=== PATIENT | female | born 1980 | race Caucasian/White ===

== ENCOUNTER 2018-02-02 14:02 | Outpatient (CLI) | payer BC ==
[~2018-02-02 14:02] MED LIST: ISOVUE-370 76%-LOCM 1 ML ONE
== END 2018-02-02 14:03 | disposition home or self-care (01) ==
LOC: BICCT 14:02
PROVIDERS: ATTEND Family Medicine
DX: R10.12 Left upper quadrant pain (principal); Z98.890 Other specified postprocedural states
CPT/HCPCS: 71260; 74160

== ENCOUNTER 2019-02-21 08:13 | Outpatient (CLI) | payer BC ==
--- NOTE | 2019-02-21 08:35 | MMO ---
Bilateral MAMMO Bilat Screen [facility]. CLINICAL HISTORY: Patient is 38 years old and is seen for screening. The patient has no family history of breast cancer. The patient has no personal history of cancer. VIEWS: The views performed were: bilateral craniocaudal with tomosynthesis and bilateral mediolateral oblique with tomosynthesis. MAMMOGRAM FINDINGS: There are scattered fibroglandular densities. There are no suspicious masses, suspicious calcifications, or new areas of architectural distortion. IMPRESSION: THERE IS NO MAMMOGRAPHIC EVIDENCE OF MALIGNANCY. A ROUTINE FOLLOW-UP MAMMOGRAM IN 1 YEAR IS RECOMMENDED. THE RESULTS OF THIS EXAM WERE SENT TO THE PATIENT. ACR BI-RADS Category 1 - Negative MAMMOGRAPHY NOTE: 1. A negative mammogram report should not delay a biopsy if a dominant of clinically suspicious mass is present. 2. Approximately 10% to 15% of breast cancers are not detected by mammography. 3. Adenosis and dense breasts may obscure an underlying neoplasm. Reported by: TIM MANNING MD Electonically Signed: [id number]
== END 2019-02-21 08:14 | disposition home or self-care (01) ==
LOC: BICMAMMO 08:13
PROVIDERS: ATTEND Family Medicine
DX: Z12.31 Encounter for screening mammogram for malignant neoplasm of breast (principal)
CPT/HCPCS: 77063; 77067

== ENCOUNTER 2020-05-25 15:51 | Outpatient (CLI) | payer BC ==
--- NOTE | 2020-05-25 16:28 | MMO ---
Bilateral MAMMO Bilat Screen [facility]. CLINICAL HISTORY: Patient is 39 years old and is seen for screening. The patient has the following family history of breast cancer: maternal grandmother. The patient has no personal history of cancer. VIEWS: The views performed were: bilateral craniocaudal with tomosynthesis and bilateral mediolateral oblique with tomosynthesis. FILMS COMPARED: The present examination has been compared to a prior imaging study performed at [facility] on 02/21/2019. This study has been interpreted with the assistance of computer-aided detection. MAMMOGRAM FINDINGS: There are scattered fibroglandular densities. There are no suspicious masses, suspicious calcifications, or new areas of architectural distortion. IMPRESSION: THERE IS NO MAMMOGRAPHIC EVIDENCE OF MALIGNANCY. A ROUTINE FOLLOW-UP MAMMOGRAM IN 1 YEAR IS RECOMMENDED. THE RESULTS OF THIS EXAM WERE SENT TO THE PATIENT. ACR BI-RADS Category 1 - Negative MAMMOGRAPHY NOTE: 1. A negative mammogram report should not delay a biopsy if a dominant of clinically suspicious mass is present. 2. Approximately 10% to 15% of breast cancers are not detected by mammography. 3. Adenosis and dense breasts may obscure an underlying neoplasm. Reported by: YADIRA JIMÉNEZ MD Electonically Signed: [id number]
== END 2020-05-25 15:52 | disposition home or self-care (01) ==
LOC: BICMAMMO 15:51
PROVIDERS: ATTEND Family Medicine
DX: Z12.31 Encounter for screening mammogram for malignant neoplasm of breast (principal); Z80.3 Family history of malignant neoplasm of breast
CPT/HCPCS: 77063; 77067

== ENCOUNTER 2021-01-18 12:17 | Outpatient (CLI) | payer BC | END 2021-01-18 12:18 | disposition home or self-care (01) | LOC: BICMRI 12:17 | PROVIDERS: ATTEND Nurse Practitioner Family | DX: M51.16 Intervertebral disc disorders with radiculopathy, lumbar region (principal); M48.061 Spinal stenosis, lumbar region without neurogenic claudication | CPT/HCPCS: 72148 ==

== ENCOUNTER 2021-11-15 07:56 | Outpatient (CLI) | payer BC | END 2021-11-15 07:57 | disposition home or self-care (01) | LOC: BICMAMMO 07:56 | PROVIDERS: ATTEND Family Medicine | DX: Z12.31 Encounter for screening mammogram for malignant neoplasm of breast (principal) | CPT/HCPCS: 77063; 77067 ==

== ENCOUNTER 2021-12-15 08:38 | Outpatient (CLI) | payer BC | END 2021-12-15 08:39 | disposition home or self-care (01) | LOC: MRI 08:38 | PROVIDERS: ATTEND Physician Assistant Medical | DX: R74.8 Abnormal levels of other serum enzymes (principal); N28.1 Cyst of kidney, acquired; Z90.49 Acquired absence of other specified parts of digestive tract | CPT/HCPCS: 74183 ==

== ENCOUNTER 2022-06-27 07:58 | Day surgery (SDC) | payer BC ==
[2022-06-24 14:16] VITALS: BMI 28.3
[2022-06-27 08:00] LABS: #Basophils 0.1 thou/uL (0.0-0.2); #Eosinphils 0.1 thou/uL (0.0-0.7); #Monocytes 0.7 thou/uL (0.11-0.59); #Neutrophils 3.9 thou/uL (1.40-6.50); %Basophils 0.9 % (0.0-1.0); %Eosinophils 1.9 % (0.0-10.0); %Lymphocytes 38.3 % (21.0-51.0); %Monocytes 8.5 % (0.0-10.0); %Neutrophils 50.5 % (42.0-75.0); Hemoglobin 13.6 g/dL (12.0-16.0); Mean Corpuscular HGB CONC 31.6 g/dL (32.0-36.0); Mean Corpuscular Hemoglobin 29.1 pg (27.0-31.0); Mean Corpuscular Volume 92.1 fl (78.0-98.0); Mean Platelet Volume 6.8 fL (7.4-10.4); Platelet Count 379 10x3/uL (130-400); RBC Distribution Width 11.3 % (11.5-14.5); Red Blood Cell (RBC) Count 4.66 mill/uL (4.20-5.40); White Blood Cell (WBC) Count 7.8 10x3/uL (4.8-10.8)
[2022-06-27 08:17] LABS: PTT 27.6 sec (22.9-36.1)
[2022-06-27] MEDS ORDERED: Midazolam HCl 2 mg/2 ml Vial ONE (08:40)
[2022-06-27] MEDS ORDERED: FENTANYL 50 MCG/ML 1 ML VIAL ONE (08:41)
[2022-06-27] MEDS ORDERED: Lidocaine 2% PF 5 ML VIAL ONE ×2 (08:41→09:51)
[2022-06-27] MEDS ORDERED: Sodium Bicarbonate 2.5 MEQ/5 ML VIAL ONE (08:41)
[2022-06-27 08:48] LABS: INR-International Normal Ratio 0.9; Prothrombin Time 12.9 sec (12.0-14.7)
[2022-06-27] MEDS ORDERED: HYDROcodone/Acetaminophen 5/325 mg Tablet ONE ×3 (10:03→12:09)
[2022-06-27] MEDS ORDERED: Ondansetron PF 4 MG/2 ML Vial ONE (10:21)
[2022-06-27] MEDS ORDERED: Dicyclomine 20 MG/2 ML VIAL IM SCH (10:45)
== END 2022-06-27 13:00 | disposition home or self-care (01) ==
LOC: ULT 07:58
PROVIDERS: ATTEND Physician Assistant Medical
PROC: 0FB23ZX Excision of Left Lobe Liver, Percutaneous Approach, Diagnostic (ICD-10-PCS; principal; 2022-06-27)
DX: R74.8 Abnormal levels of other serum enzymes (principal); K25.9 Gastric ulcer, unspecified as acute or chronic, without hemorrhage or perforation; R10.30 Lower abdominal pain, unspecified; E78.00 Pure hypercholesterolemia, unspecified; M06.9 Rheumatoid arthritis, unspecified; Z79.899 Other long term (current) drug therapy; Z98.84 Bariatric surgery status
CPT/HCPCS: 47000; 74176; 76942; 85025; 85730; J2001; J2250; J2405; J3010

== ENCOUNTER 2022-06-27 13:18 | Inpatient (IN) | payer BC ==
[2022-06-27 14:14] LABS: #Lymphocytes 1.3 thou/uL (1.20-3.40); #Neutrophils 16.3 thou/uL (1.40-6.50); %Basophils 0.2 % (0.0-1.0); %Eosinophils 0.1 % (0.0-10.0); %Monocytes 5.2 % (0.0-10.0); %Neutrophils 87.4 % (42.0-75.0); Hemoglobin 13.7 g/dL (12.0-16.0); Mean Corpuscular HGB CONC 31.2 g/dL (32.0-36.0); Mean Corpuscular Hemoglobin 28.1 pg (27.0-31.0); Mean Platelet Volume 7.3 fL (7.4-10.4); Platelet Count 391 10x3/uL (130-400); RBC Distribution Width 11.2 % (11.5-14.5); Red Blood Cell (RBC) Count 4.87 mill/uL (4.20-5.40); White Blood Cell (WBC) Count 18.7 10x3/uL (4.8-10.8)
[2022-06-27] MEDS ORDERED: Iopamidol-370 76% 500 ML 1 ML ONE (14:20)
[2022-06-27 14:40] LABS: ALT (SGPT) 13 U/L (8-55); AST (SGOT) 23 U/L (5-34); Alkaline Phosphatase 149 U/L (40-110); Anion Gap 18 mmol/L (10-20); BUN (Urea Nitrogen) 13 mg/dL (7.0-18.7); Bilirubin, Total 0.5 mg/dL (0.2-1.2); Calc. Creatinine Clearance 0 mL/min (70-130); Calcium 9.1 mg/dL (7.8-10.44); Carbon Dioxide 19 mmol/L (22-29); Chloride 105 mmol/L (98-107); Estimated GFR 82; Glucose 176 mg/dL (70-105); Potassium 3.4 mmol/L (3.5-5.1); Sodium 139 mmol/L (136-145)
[2022-06-27] MEDS ORDERED: Morphine 4 MG/ML VIAL ONE (14:52)
[2022-06-27] MEDS ORDERED: Morphine 4 MG/ML VIAL SLOW IVP PRN (16:50)
[2022-06-27] MEDS ORDERED: Ondansetron ODT 4 MG TAB SL PRN (17:00)
[2022-06-27] MEDS ORDERED: Ondansetron PF 4 MG/2 ML Vial IVP PRN (17:00)
[2022-06-27 17:42] VITALS: BMI 27.4
[2022-06-27] MEDS ORDERED: TETANUS, DIPHTHERIA TOX,ADULT (TDVAX) 0.5 ML VIAL IM ONE (18:46)
[2022-06-27] MEDS ORDERED: Morphine 2 MG/ML VIAL SLOW IVP PRN (18:46)
[2022-06-27] MEDS ORDERED: hydrALAZINE 20 MG/ML VIAL SLOW IVP PRN (18:46)
[2022-06-27] MEDS ORDERED: Zolpidem Tartrate 5 MG TAB PO PRN (18:58)
[2022-06-27] MEDS ORDERED: Ketorolac Tromethamine 30 MG/ML VIAL IVP SCH (19:00)
[2022-06-27 19:07] LABS: Hemoglobin 14.5 g/dL (12.0-16.0)
[2022-06-27] MEDS: D5 1/2 NS w/20 mEq KCL 1,000 ML IV SCH (20:27)
[2022-06-27] MEDS: Acetaminophen 500 MG TAB PO SCH ×2 (20:27→23:41)
[2022-06-27] MEDS: Escitalopram Oxalate 10 mg Tablet PO SCH (20:28)
[2022-06-27] MEDS: Famotidine 20 MG TAB PO SCH (20:29)
[2022-06-27] MEDS: Morphine 4 MG/ML VIAL SLOW IVP PRN ×2 (20:29→23:42)
[2022-06-27] MEDS: Ketorolac Tromethamine 30 MG/ML VIAL IVP SCH (23:41)
[2022-06-28] MEDS: Ketorolac Tromethamine 30 MG/ML VIAL IVP SCH ×4 (04:56→22:25)
[2022-06-28] MEDS: ALPRAZolam 0.5 MG TAB PO PRN (04:57)
[2022-06-28] MEDS: D5 1/2 NS w/20 mEq KCL 1,000 ML IV SCH ×2 (04:58→11:04)
[2022-06-28] MEDS: Morphine 4 MG/ML VIAL SLOW IVP PRN ×5 (05:46→22:23)
[2022-06-28] MEDS: Acetaminophen 500 MG TAB PO SCH ×4 (05:47→23:15)
[2022-06-28 06:21] LABS: #Lymphocytes 1.6 thou/uL (1.20-3.40); #Monocytes 1.5 thou/uL (0.11-0.59); #Neutrophils 15.4 thou/uL (1.40-6.50); %Basophils 0.1 % (0.0-1.0); %Eosinophils 0.1 % (0.0-10.0); %Lymphocytes 8.6 % (21.0-51.0); %Neutrophils 83.1 % (42.0-75.0); Hemoglobin 13.8 g/dL (12.0-16.0); Mean Corpuscular HGB CONC 31.6 g/dL (32.0-36.0); Mean Corpuscular Hemoglobin 29.4 pg (27.0-31.0); Mean Platelet Volume 7.5 fL (7.4-10.4); Platelet Count 344 10x3/uL (130-400); RBC Distribution Width 11.4 % (11.5-14.5); White Blood Cell (WBC) Count 18.6 10x3/uL (4.8-10.8)
[2022-06-28 06:41] LABS: Anion Gap 11 mmol/L (10-20); BUN (Urea Nitrogen) 9 mg/dL (7.0-18.7); Calc. Creatinine Clearance 92 mL/min (70-130); Calcium 9.2 mg/dL (7.8-10.44); Carbon Dioxide 26 mmol/L (22-29); Chloride 105 mmol/L (98-107); Estimated GFR 87; Glucose 137 mg/dL (70-105); Potassium 3.9 mmol/L (3.5-5.1); Sodium 138 mmol/L (136-145)
[2022-06-28] MEDS: Hydroxychloroquine Sulfate 200 MG TAB PO SCH (08:14)
[2022-06-28] MEDS: Famotidine 20 MG TAB PO SCH ×2 (08:14→21:09)
[2022-06-28] MEDS ORDERED: Milk Of Magnesia 30 ML UDCUP PO PRN (14:21)
[2022-06-28] MEDS ORDERED: Simethicone Chewable 80 MG TAB PO SCH (14:30)
[2022-06-28] MEDS ORDERED: Milk Of Magnesia 30 ML UDCUP PO SCH (14:30)
[2022-06-28 16:32] LABS: Hemoglobin 13.5 g/dL (12.0-16.0); Mean Corpuscular Hemoglobin 28.8 pg (27.0-31.0); Mean Corpuscular Volume 92.9 fl (78.0-98.0); Mean Platelet Volume 7.3 fL (7.4-10.4); Platelet Count 347 10x3/uL (130-400); RBC Distribution Width 11.7 % (11.5-14.5); Red Blood Cell (RBC) Count 4.69 mill/uL (4.20-5.40); White Blood Cell (WBC) Count 22.9 10x3/uL (4.8-10.8)
[2022-06-28] MEDS ORDERED: traMADol HCl 50 MG TAB PO PRN (16:32)
[2022-06-28 16:45] LABS: Band 13 % (5-11); Lymphocytes 2 % (21-51); MDiff Complete? YES; Monocytes 11 % (0-10); Neutrophil 74 % (42-75); Platelet Morphology Comment Appears Adequate; RBC Morphology Normal; Vacuoles SLIGHT
[2022-06-28] MEDS ORDERED: Ondansetron ODT 4 MG TAB PO PRN (17:14)
[2022-06-28] MEDS ORDERED: Ondansetron ODT 8 MG TAB PO PRN (17:14)
[2022-06-28] MEDS: Ondansetron PF 4 MG/2 ML Vial IVP PRN (18:47)
[2022-06-28] MEDS: HYDROcodone/Acetaminophen 5/325 mg Tablet PO PRN (21:09)
[2022-06-28] MEDS: Escitalopram Oxalate 10 mg Tablet PO SCH (21:09)
[2022-06-28] MEDS ORDERED: Promethazine HCl 25 MG/ML VIAL IM PRN (21:49)
[2022-06-28] MEDS: Promethazine 25 MG TAB PO PRN (22:23)
[2022-06-28] MEDS: Simethicone Chewable 80 MG TAB PO PRN (22:26)
[2022-06-29] MEDS: Ketorolac Tromethamine 30 MG/ML VIAL IVP SCH ×4 (05:49→23:37)
[2022-06-29] MEDS: Acetaminophen 500 MG TAB PO SCH ×4 (05:49→23:36)
[2022-06-29 06:35] LABS: #Lymphocytes 1.4 thou/uL (1.20-3.40); #Monocytes 1.4 thou/uL (0.11-0.59); #Neutrophils 16.1 thou/uL (1.40-6.50); %Basophils 0.3 % (0.0-1.0); %Eosinophils 0.2 % (0.0-10.0); %Lymphocytes 7.2 % (21.0-51.0); %Monocytes 7.6 % (0.0-10.0); %Neutrophils 84.8 % (42.0-75.0); Hemoglobin 13.1 g/dL (12.0-16.0); Mean Corpuscular Volume 93.6 fl (78.0-98.0); Mean Platelet Volume 7.6 fL (7.4-10.4); Platelet Count 344 10x3/uL (130-400); RBC Distribution Width 11.8 % (11.5-14.5); Red Blood Cell (RBC) Count 4.66 mill/uL (4.20-5.40); White Blood Cell (WBC) Count 18.9 10x3/uL (4.8-10.8)
[2022-06-29] MEDS: Famotidine 20 MG TAB PO SCH ×2 (08:59→20:51)
[2022-06-29] MEDS: Hydroxychloroquine Sulfate 200 MG TAB PO SCH (08:59)
[2022-06-29] MEDS: Polyethylene Glycol 3350 17 GM Packet PO SCH (08:59)
[2022-06-29] MEDS: Promethazine 25 MG TAB PO PRN ×2 (09:58→20:51)
[2022-06-29] MEDS: HYDROcodone/Acetaminophen 5/325 mg Tablet PO PRN ×2 (10:04→20:51)
[2022-06-29] MEDS: Simethicone Chewable 80 MG TAB PO PRN ×2 (11:01→20:51)
[2022-06-29] MEDS ORDERED: Iopamidol-370 76% 500 ML 1 ML ONE (11:18)
[2022-06-29] MEDS: Ondansetron PF 4 MG/2 ML Vial IVP PRN (17:19)
[2022-06-29] MEDS: Morphine 4 MG/ML VIAL SLOW IVP PRN (17:20)
[2022-06-29] MEDS: Escitalopram Oxalate 10 mg Tablet PO SCH (20:51)
[2022-06-30] MEDS: HYDROcodone/Acetaminophen 5/325 mg Tablet PO PRN ×2 (03:32→08:45)
[2022-06-30] MEDS: ALPRAZolam 0.5 MG TAB PO PRN (03:35)
[2022-06-30 05:49] LABS: #Eosinphils 0.1 thou/uL (0.0-0.7); #Lymphocytes 1.3 thou/uL (1.20-3.40); #Monocytes 1.3 thou/uL (0.11-0.59); #Neutrophils 12.5 thou/uL (1.40-6.50); %Basophils 0.3 % (0.0-1.0); %Eosinophils 0.7 % (0.0-10.0); %Lymphocytes 8.7 % (21.0-51.0); %Monocytes 8.8 % (0.0-10.0); %Neutrophils 81.5 % (42.0-75.0); Hemoglobin 12.7 g/dL (12.0-16.0); Mean Corpuscular HGB CONC 31.1 g/dL (32.0-36.0); Mean Corpuscular Hemoglobin 29.2 pg (27.0-31.0); Mean Corpuscular Volume 93.9 fl (78.0-98.0); Mean Platelet Volume 7.6 fL (7.4-10.4); Platelet Count 322 10x3/uL (130-400); RBC Distribution Width 11.7 % (11.5-14.5); Red Blood Cell (RBC) Count 4.34 mill/uL (4.20-5.40); White Blood Cell (WBC) Count 15.3 10x3/uL (4.8-10.8)
[2022-06-30] MEDS: Acetaminophen 500 MG TAB PO SCH ×2 (06:09→12:20)
[2022-06-30] MEDS: Ketorolac Tromethamine 30 MG/ML VIAL IVP SCH ×2 (06:09→12:19)
[2022-06-30 06:14] LABS: ALT (SGPT) 17 U/L (8-55); AST (SGOT) 27 U/L (5-34); Albumin 3.2 g/dL (3.5-5.0); Alkaline Phosphatase 168 U/L (40-110); Anion Gap 7 mmol/L (10-20); BUN (Urea Nitrogen) 13 mg/dL (7.0-18.7); Bilirubin, Total 1.7 mg/dL (0.2-1.2); Calc. Creatinine Clearance 84 mL/min (70-130); Carbon Dioxide 30 mmol/L (22-29); Chloride 104 mmol/L (98-107); Estimated GFR 78; Globulin 2.9 g/dL (2.4-3.5); Glucose 94 mg/dL (70-105); Lipase 12 U/L (8-78); Potassium 4.3 mmol/L (3.5-5.1); Protein, Total 6.1 g/dL (6.0-8.3); Sodium 137 mmol/L (136-145)
[2022-06-30] MEDS: Morphine 4 MG/ML VIAL SLOW IVP PRN (06:38)
[2022-06-30] MEDS: Hydroxychloroquine Sulfate 200 MG TAB PO SCH (08:45)
[2022-06-30] MEDS: Famotidine 20 MG TAB PO SCH (08:45)
[2022-06-30] MEDS: Polyethylene Glycol 3350 17 GM Packet PO SCH (08:45)
[2022-06-30 16:08] VITALS: BP 123/85; TEMP 98.5
== END 2022-06-30 17:16 | disposition home or self-care (01) | DRG 921 ==
LOC: ERS 13:18 → SURG A 16:44 → OBSVTOIN 06-28 15:17
PROVIDERS: ADMIT Specialist; ATTEND Specialist
PROC: 0FB23ZX Excision of Left Lobe Liver, Percutaneous Approach, Diagnostic (ICD-10-PCS; principal; 2022-06-27)
DX: K91.841 Postprocedural hemorrhage of a digestive system organ or structure following other procedure (principal); Z20.822 Contact with and (suspected) exposure to COVID-19; E66.01 Morbid (severe) obesity due to excess calories; E78.00 Pure hypercholesterolemia, unspecified; F41.9 Anxiety disorder, unspecified; Y83.8 Other surgical procedures as the cause of abnormal reaction of the patient, or of later complication, without mention of misadventure at the time of the procedure; Z98.84 Bariatric surgery status; Z79.899 Other long term (current) drug therapy; Z90.710 Acquired absence of both cervix and uterus; Z90.49 Acquired absence of other specified parts of digestive tract; Z68.27 Body mass index [BMI] 27.0-27.9, adult; R74.8 Abnormal levels of other serum enzymes; K25.9 Gastric ulcer, unspecified as acute or chronic, without hemorrhage or perforation; R10.30 Lower abdominal pain, unspecified; M06.9 Rheumatoid arthritis, unspecified
CPT/HCPCS: 36415; 36416; 47000; 71045; 74176; 74177; 76942; 80048; 80053; 83690; 85025; 85730; 86850; 86900; 86901; 88307; 88313; 93005; 96374; J1885; J2001; J2250; J2270; J2405; J3010; J3480; Q0169; Q9967; U0003; U0005

== ENCOUNTER 2022-07-03 15:08 | Inpatient (IN) | payer BC ==
[2022-07-03] MEDS ORDERED: Ondansetron PF 4 MG/2 ML Vial IVP PRN (19:00)
[2022-07-03] MEDS ORDERED: Sodium Chloride 0.9% 1,000 ML IV SCH (19:00)
[2022-07-03] MEDS ORDERED: Ondansetron ODT 4 MG TAB PO PRN (19:00)
[2022-07-03] MEDS ORDERED: Piperacillin/Tazobactam 3.375 GM in Sodium Chloride 0.9% 100 ML IVPB SCH (19:30)
[2022-07-03 19:43] LABS: #Basophils 0.1 thou/uL (0.0-0.2); #Eosinphils 0.2 thou/uL (0.0-0.7); #Lymphocytes 2.3 thou/uL (1.20-3.40); #Monocytes 1.7 thou/uL (0.11-0.59); #Neutrophils 9.8 thou/uL (1.40-6.50); %Basophils 0.4 % (0.0-1.0); %Eosinophils 1.6 % (0.0-10.0); %Lymphocytes 16.3 % (21.0-51.0); %Neutrophils 69.7 % (42.0-75.0); Hemoglobin 12.2 g/dL (12.0-16.0); Mean Corpuscular HGB CONC 31.2 g/dL (32.0-36.0); Mean Corpuscular Hemoglobin 28.7 pg (27.0-31.0); Mean Platelet Volume 6.7 fL (7.4-10.4); Platelet Count 404 10x3/uL (130-400); RBC Distribution Width 11.7 % (11.5-14.5); Red Blood Cell (RBC) Count 4.25 mill/uL (4.20-5.40); White Blood Cell (WBC) Count 14.1 10x3/uL (4.8-10.8)
[2022-07-03 19:53] LABS: Lactic Acid 1.1 mmol/L (0.5-2.2)
[2022-07-03 19:57] LABS: ALT (SGPT) 42 U/L (8-55); AST (SGOT) 56 U/L (5-34); Albumin 3.3 g/dL (3.5-5.0); Alkaline Phosphatase 344 U/L (40-110); Anion Gap 13 mmol/L (10-20); BUN (Urea Nitrogen) 9 mg/dL (7.0-18.7); Bilirubin, Total 1.6 mg/dL (0.2-1.2); Calc. Creatinine Clearance 100 mL/min (70-130); Calcium 8.4 mg/dL (7.8-10.44); Carbon Dioxide 27 mmol/L (22-29); Chloride 103 mmol/L (98-107); Estimated GFR 92; Globulin 2.5 g/dL (2.4-3.5); Glucose 89 mg/dL (70-105); Potassium 4.2 mmol/L (3.5-5.1); Protein, Total 5.8 g/dL (6.0-8.3); Sodium 139 mmol/L (136-145)
[2022-07-03] MEDS: Escitalopram Oxalate 10 mg Tablet PO SCH (20:23)
[2022-07-03] MEDS: oxyCODONE 5 MG TAB PO PRN (20:23)
[2022-07-03] MEDS: Piperacillin/Tazobactam 3.375 GM in Sodium Chloride 0.9% 100 ML IVPB SCH (20:24)
[2022-07-03] MEDS: Zolpidem Tartrate 5 MG TAB PO PRN (22:52)
[2022-07-03] MEDS: Simethicone Chewable 80 MG TAB PO PRN (23:44)
[2022-07-04] MEDS: oxyCODONE 5 MG TAB PO PRN ×5 (00:44→20:33)
[2022-07-04] MEDS: Piperacillin/Tazobactam 3.375 GM in Sodium Chloride 0.9% 100 ML IVPB SCH ×3 (04:55→20:32)
[2022-07-04 05:10] LABS: #Eosinphils 0.2 thou/uL (0.0-0.7); #Lymphocytes 2.4 thou/uL (1.20-3.40); #Neutrophils 11.1 thou/uL (1.40-6.50); %Basophils 0.2 % (0.0-1.0); %Eosinophils 1.5 % (0.0-10.0); %Monocytes 12.9 % (0.0-10.0); %Neutrophils 70.4 % (42.0-75.0); Hemoglobin 11.6 g/dL (12.0-16.0); Mean Corpuscular HGB CONC 31.7 g/dL (32.0-36.0); Mean Corpuscular Volume 91.7 fl (78.0-98.0); Mean Platelet Volume 6.8 fL (7.4-10.4); Platelet Count 427 10x3/uL (130-400); RBC Distribution Width 11.8 % (11.5-14.5); Red Blood Cell (RBC) Count 3.98 mill/uL (4.20-5.40); White Blood Cell (WBC) Count 15.8 10x3/uL (4.8-10.8)
[2022-07-04 05:29] LABS: Anion Gap 13 mmol/L (10-20); BUN (Urea Nitrogen) 10 mg/dL (7.0-18.7); Calc. Creatinine Clearance 110 mL/min (70-130); Calcium 8.1 mg/dL (7.8-10.44); Carbon Dioxide 24 mmol/L (22-29); Chloride 101 mmol/L (98-107); Estimated GFR 103; Glucose 88 mg/dL (70-105); Potassium 4.1 mmol/L (3.5-5.1); Sodium 134 mmol/L (136-145)
[2022-07-04] MEDS: Hydroxychloroquine Sulfate 200 MG TAB PO SCH ×2 (10:08→11:24)
[2022-07-04] MEDS: Simethicone Chewable 80 MG TAB PO PRN (10:09)
[2022-07-04] MEDS ORDERED: Lactated Ringer's 500 ML IV SCH ×2 (10:45→11:30)
[2022-07-04] MEDS ORDERED: FENTANYL 50 MCG/ML 1 ML VIAL ONE (13:56)
[2022-07-04] MEDS ORDERED: Sodium Bicarbonate 2.5 MEQ/5 ML VIAL ONE (13:57)
[2022-07-04] MEDS ORDERED: Midazolam HCl 2 mg/2 ml Vial ONE (13:57)
[2022-07-04 15:32] LABS: RBC Count-Automated (BF) 863 /cu.mm; WBC/Nucleated-Auto (BF) 76 /cu.mm
[2022-07-04 16:02] LABS: BF Color Brown; Clarity Clear (Clear); Tube # EDTA
[2022-07-04 16:05] LABS: BF Segmented Neutrophils 44 %; Cell Count Non Hematic 54 %; Lymphocytes 2 %
[2022-07-04] MEDS: traMADol HCl 50 MG TAB PO PRN (18:46)
[2022-07-04] MEDS ORDERED: VANCOMYCIN 1.75 GM/500 ML BAG 1.75 GM in Premix Bag 1 BAG IVPB SCH (20:15)
[2022-07-04] MEDS: Acetaminophen 325 MG TAB PO PRN (20:33)
[2022-07-04] MEDS: Escitalopram Oxalate 10 mg Tablet PO SCH (20:34)
[2022-07-04] MEDS: Zolpidem Tartrate 5 MG TAB PO PRN (21:39)
[2022-07-05] MEDS: Acetaminophen 325 MG TAB PO PRN (02:52)
[2022-07-05] MEDS: Piperacillin/Tazobactam 3.375 GM in Sodium Chloride 0.9% 100 ML IVPB SCH ×3 (04:25→20:47)
[2022-07-05] MEDS: traMADol HCl 50 MG TAB PO PRN ×2 (07:11→17:36)
[2022-07-05] MEDS ORDERED: Midazolam HCl 2 mg/2 ml Vial ONE (08:52)
[2022-07-05] MEDS ORDERED: VANCOMYCIN 1.25 GM/250 ML BAG 1.25 GM in Premix Bag 1 BAG IVPB SCH (09:00)
[2022-07-05] MEDS ORDERED: Iopamidol 30 ML ONE (09:26)
[2022-07-05] MEDS ORDERED: fentaNYL PF 100 MCG/2 ML SYRINGE ONE (09:33)
[2022-07-05] MEDS ORDERED: Indomethacin 50 MG SUPP ONE ×2 (09:44→09:45)
[2022-07-05] MEDS ORDERED: Lactated Ringer's 1,000 ML IV SCH (09:45)
[2022-07-05] MEDS ORDERED: Ondansetron PF 4 MG/2 ML Vial ONE (09:47)
[2022-07-05] MEDS ORDERED: NEOSTIGMINE 3 MG/3 ML SYR 3 MG/3 ML SYRINGE ONE (09:47)
[2022-07-05] MEDS ORDERED: Rocuronium Bromide 10 MG/ML (10ML VIAL) ONE (09:47)
[2022-07-05] MEDS ORDERED: PROPOFOL 200 MG/20 ML VIAL ONE (09:47)
[2022-07-05] MEDS ORDERED: Glycopyrrolate 0.2 MG/ML 5 ML SYRINGE ONE (09:47)
[2022-07-05] MEDS ORDERED: Dexamethasone 20 MG/5 ML VIAL ONE (09:47)
[2022-07-05 09:49] LABS: ALT (SGPT) 38 U/L (8-55); AST (SGOT) 56 U/L (5-34); Albumin 2.9 g/dL (3.5-5.0); Alkaline Phosphatase 374 U/L (40-110); Bilirubin, Direct 1.1 mg/dL (0.1-0.3); Bilirubin, Total 1.6 mg/dL (0.2-1.2); Protein, Total 5.9 g/dL (6.0-8.3)
[2022-07-05] MEDS ORDERED: Ondansetron HCl/PF 4 MG/2 ML Vial IVP PRN (10:10)
[2022-07-05] MEDS ORDERED: Promethazine HCl 25 MG/ML VIAL IVPB PRN (10:10)
[2022-07-05] MEDS ORDERED: Promethazine HCl 25 MG/ML VIAL IM PRN (10:10)
[2022-07-05] MEDS ORDERED: FENTANYL 50 MCG/ML 1 ML VIAL ONE (10:50)
[2022-07-05] MEDS: oxyCODONE 5 MG TAB PO PRN ×2 (12:35→22:48)
[2022-07-05] MEDS ORDERED: Electrolyte Replacement Protocol 1 EACH FS SCH (14:00)
[2022-07-05] MEDS ORDERED: Electrolyte Replacement Protocol FS PRN (14:00)
[2022-07-05] MEDS: Hydroxychloroquine Sulfate 200 MG TAB PO SCH (17:03)
[2022-07-05] MEDS: Lactated Ringer's 1,000 ML IV SCH (17:15)
[2022-07-05] MEDS: Escitalopram Oxalate 10 mg Tablet PO SCH (20:49)
[2022-07-05] MEDS: Simethicone Chewable 80 MG TAB PO PRN (20:58)
[2022-07-05] MEDS ORDERED: Hydroxychloroquine Sulfate 200 MG TAB PO SCH (21:00)
[2022-07-05] MEDS: Zolpidem Tartrate 5 MG TAB PO PRN (22:49)
[2022-07-06] MEDS: Lactated Ringer's 1,000 ML IV SCH ×2 (00:20→00:25)
[2022-07-06] MEDS: Piperacillin/Tazobactam 3.375 GM in Sodium Chloride 0.9% 100 ML IVPB SCH (04:26)
[2022-07-06 06:20] LABS: Hemoglobin 10.2 g/dL (12.0-16.0); Lymphocytes 9 % (21-51); MDiff Complete? YES; Mean Corpuscular HGB CONC 30.6 g/dL (32.0-36.0); Mean Corpuscular Hemoglobin 28.3 pg (27.0-31.0); Mean Corpuscular Volume 92.5 fl (78.0-98.0); Mean Platelet Volume 6.8 fL (7.4-10.4); Monocytes 10 % (0-10); Neutrophil 81 % (42-75); Platelet Count 481 10x3/uL (130-400); Platelet Morphology Comment Appears Increased; RBC Distribution Width 11.7 % (11.5-14.5); Red Blood Cell (RBC) Count 3.61 mill/uL (4.20-5.40); White Blood Cell (WBC) Count 20.6 10x3/uL (4.8-10.8)
[2022-07-06 06:24] LABS: Phosphorus 3.9 mg/dL (2.3-4.7)
[2022-07-06 06:34] LABS: ALT (SGPT) 35 U/L (8-55); AST (SGOT) 41 U/L (5-34); Albumin 2.8 g/dL (3.5-5.0); Alkaline Phosphatase 389 U/L (40-110); Anion Gap 12 mmol/L (10-20); BUN (Urea Nitrogen) 13 mg/dL (7.0-18.7); Bilirubin, Total 1.1 mg/dL (0.2-1.2); Calc. Creatinine Clearance 39 mL/min (70-130); Calcium 8.4 mg/dL (7.8-10.44); Carbon Dioxide 25 mmol/L (22-29); Chloride 106 mmol/L (98-107); Estimated GFR 30; Glucose 104 mg/dL (70-105); Magnesium 2.1 mg/dL (1.6-2.6); Potassium 4.3 mmol/L (3.5-5.1); Protein, Total 5.8 g/dL (6.0-8.3); Sodium 139 mmol/L (136-145)
[2022-07-06] MEDS: Acetaminophen 325 MG TAB PO PRN ×2 (07:48→20:09)
[2022-07-06] MEDS ORDERED: Sodium Chloride 0.9% 1,000 ML IV SCH (08:00)
[2022-07-06] MEDS: metroNIDAZOLE 500 MG TAB PO SCH ×3 (09:22→20:09)
[2022-07-06] MEDS: ALPRAZolam 0.25 MG TAB PO PRN (10:57)
[2022-07-06] MEDS: cefTRIAXone\\ROCEPHIN 1 GM in Sodium Chloride 0.9% 100 ML IVPB SCH (10:57)
[2022-07-06] MEDS: traMADol HCl 50 MG TAB PO PRN (12:44)
[2022-07-06] MEDS: Sodium Chloride 0.9% 1,000 ML IV SCH ×3 (14:32→22:43)
[2022-07-06] MEDS: oxyCODONE 5 MG TAB PO PRN ×2 (14:55→22:40)
[2022-07-06] MEDS: Escitalopram Oxalate 10 mg Tablet PO SCH (20:09)
[2022-07-06] MEDS: Simethicone Chewable 80 MG TAB PO PRN (20:19)
[2022-07-06] MEDS: Zolpidem Tartrate 5 MG TAB PO PRN (22:41)
[2022-07-07] MEDS: Sodium Chloride 0.9% 1,000 ML IV SCH ×4 (05:38→21:07)
[2022-07-07] MEDS: oxyCODONE 5 MG TAB PO PRN ×2 (05:38→14:29)
[2022-07-07 06:38] LABS: ALT (SGPT) 45 U/L (8-55); AST (SGOT) 74 U/L (5-34); Albumin 2.7 g/dL (3.5-5.0); Alkaline Phosphatase 453 U/L (40-110); Anion Gap 12 mmol/L (10-20); BUN (Urea Nitrogen) 16 mg/dL (7.0-18.7); Bilirubin, Total 1.1 mg/dL (0.2-1.2); Calc. Creatinine Clearance 25 mL/min (70-130); Carbon Dioxide 22 mmol/L (22-29); Chloride 107 mmol/L (98-107); Estimated GFR 18; Glucose 91 mg/dL (70-105); Potassium 3.9 mmol/L (3.5-5.1); Protein, Total 5.7 g/dL (6.0-8.3); Sodium 137 mmol/L (136-145)
[2022-07-07] MEDS: metroNIDAZOLE 500 MG TAB PO SCH ×3 (08:01→21:06)
[2022-07-07 10:27] LABS: Bilirubin Negative (Negative); Blood, Urine Negative (Negative); Clarity Turbid (Clear); Glucose, Urine (Dipstick) Normal (Negative); Ketone, Urine Negative (Negative); Leukocyte Negative Leu/uL (Negative); Nitrite Negative (Negative); Protein, Urine (Dipstick) 20 mg/dL (Neg-Trace); RBC/HPF 0-3 HPF (0-3); Specific Gravity, Urine 1.013 (1.002-1.036); Urobilinogen Normal mg/dL (Less than 2); WBC/HPF 0-3 HPF (0-3)
[2022-07-07 10:31] LABS: Bacteria/HPF 1+ HPF (None Seen)
[2022-07-07] MEDS: cefTRIAXone\\ROCEPHIN 1 GM in Sodium Chloride 0.9% 100 ML IVPB SCH (12:02)
[2022-07-07 12:07] LABS: Band 3 % (5-11); Lymphocytes 3 % (21-51); MDiff Complete? YES; Mean Corpuscular HGB CONC 31.4 g/dL (32.0-36.0); Mean Corpuscular Hemoglobin 29.2 pg (27.0-31.0); Mean Platelet Volume 6.9 fL (7.4-10.4); Monocytes 5 % (0-10); Neutrophil 88 % (42-75); Platelet Count 597 10x3/uL (130-400); Platelet Morphology Comment Appears Increased; RBC Morphology Normal; Red Blood Cell (RBC) Count 3.78 mill/uL (4.20-5.40); White Blood Cell (WBC) Count 36.9 10x3/uL (4.8-10.8)
[2022-07-07 12:35] LABS: Creatinine, Urine 88.45 mg/dL (47-110)
[2022-07-07] MEDS: Cefepime 1 GM in Sodium Chloride 0.9% 100 ML IVPB SCH (16:10)
[2022-07-07] MEDS: Acetaminophen 325 MG TAB PO PRN (21:07)
[2022-07-07] MEDS: Escitalopram Oxalate 10 mg Tablet PO SCH (21:07)
[2022-07-07] MEDS: Zolpidem Tartrate 5 MG TAB PO PRN (21:47)
[2022-07-08] MEDS: Sodium Chloride 0.9% 1,000 ML IV SCH ×3 (05:49→18:02)
[2022-07-08 06:43] LABS: ALT (SGPT) 36 U/L (8-55); AST (SGOT) 42 U/L (5-34); Albumin 2.6 g/dL (3.5-5.0); Alkaline Phosphatase 436 U/L (40-110); Anion Gap 14 mmol/L (10-20); BUN (Urea Nitrogen) 17 mg/dL (7.0-18.7); Bilirubin, Total 0.9 mg/dL (0.2-1.2); Calc. Creatinine Clearance 22 mL/min (70-130); Calcium 7.9 mg/dL (7.8-10.44); Carbon Dioxide 19 mmol/L (22-29); Chloride 108 mmol/L (98-107); Estimated GFR 15; Globulin 2.8 g/dL (2.4-3.5); Glucose 76 mg/dL (70-105); Potassium 4.2 mmol/L (3.5-5.1); Protein, Total 5.4 g/dL (6.0-8.3); Sodium 137 mmol/L (136-145)
[2022-07-08] MEDS: metroNIDAZOLE 500 MG TAB PO SCH ×3 (08:39→20:07)
[2022-07-08] MEDS: Acetaminophen 325 MG TAB PO PRN (08:41)
[2022-07-08] MEDS: oxyCODONE 5 MG TAB PO PRN ×3 (09:21→22:18)
[2022-07-08 09:57] LABS: Hemoglobin 10.3 g/dL (12.0-16.0); Mean Corpuscular HGB CONC 32.4 g/dL (32.0-36.0); Mean Corpuscular Hemoglobin 30.3 pg (27.0-31.0); Mean Corpuscular Volume 93.3 fl (78.0-98.0); Platelet Count 568 10x3/uL (130-400); RBC Distribution Width 12.1 % (11.5-14.5); Red Blood Cell (RBC) Count 3.41 mill/uL (4.20-5.40); White Blood Cell (WBC) Count 37.8 10x3/uL (4.8-10.8)
[2022-07-08 10:57] LABS: Band 1 % (5-11); Eosinophils 1 % (0-10); Lymphocytes 4 % (21-51); MDiff Complete? YES; Monocytes 3 % (0-10); Neutrophil 91 % (42-75); Platelet Morphology Comment Appears Increased
[2022-07-08] MEDS: Albumin 25% 25 GM/100 ML BOT IVPB SCH ×3 (11:34→23:31)
[2022-07-08] MEDS ORDERED: Fentanyl 100 MCG/2 ML VIAL SLOW IVP PRN (12:44)
[2022-07-08] MEDS: Cefepime 1 GM in Sodium Chloride 0.9% 100 ML IVPB SCH (15:03)
[2022-07-08] MEDS: FENTANYL 50 MCG/ML 1 ML VIAL SLOW IVP PRN ×2 (17:30→20:07)
[2022-07-08 19:37] LABS: Lipase-Fluid 6 U/L (.)
[2022-07-08] MEDS: Escitalopram Oxalate 10 mg Tablet PO SCH (20:07)
[2022-07-08] MEDS: Zolpidem Tartrate 5 MG TAB PO PRN (22:18)
[2022-07-09] MEDS: Sodium Chloride 0.9% 1,000 ML IV SCH ×2 (04:08→08:07)
[2022-07-09] MEDS: Acetaminophen 325 MG TAB PO PRN ×2 (04:46→15:59)
[2022-07-09] MEDS: Albumin 25% 25 GM/100 ML BOT IVPB SCH (04:55)
[2022-07-09 07:39] LABS: INR-International Normal Ratio 1.4; Prothrombin Time 17.5 sec (12.0-14.7)
[2022-07-09 07:41] LABS: ALT (SGPT) 20 U/L (8-55); AST (SGOT) 23 U/L (5-34); Albumin 3.8 g/dL (3.5-5.0); Alkaline Phosphatase 354 U/L (40-110); Anion Gap 14 mmol/L (10-20); BUN (Urea Nitrogen) 19 mg/dL (7.0-18.7); Bilirubin, Total 0.8 mg/dL (0.2-1.2); Calc. Creatinine Clearance 23 mL/min (70-130); Calcium 8.3 mg/dL (7.8-10.44); Carbon Dioxide 16 mmol/L (22-29); Chloride 110 mmol/L (98-107); Estimated GFR 16; Globulin 2.3 g/dL (2.4-3.5); Glucose 76 mg/dL (70-105); Magnesium 1.8 mg/dL (1.6-2.6); Phosphorus 3.2 mg/dL (2.3-4.7); Potassium 3.7 mmol/L (3.5-5.1); Protein, Total 6.1 g/dL (6.0-8.3); Sodium 136 mmol/L (136-145)
[2022-07-09] MEDS: metroNIDAZOLE 500 MG TAB PO SCH ×3 (08:06→20:33)
[2022-07-09 08:14] LABS: Hemoglobin 9.1 g/dL (12.0-16.0); Mean Corpuscular HGB CONC 30.4 g/dL (32.0-36.0); Mean Corpuscular Hemoglobin 28.2 pg (27.0-31.0); Mean Corpuscular Volume 92.7 fl (78.0-98.0); Mean Platelet Volume 7.1 fL (7.4-10.4); Platelet Count 610 10x3/uL (130-400); RBC Distribution Width 12.3 % (11.5-14.5); Red Blood Cell (RBC) Count 3.24 mill/uL (4.20-5.40); White Blood Cell (WBC) Count 37.9 10x3/uL (4.8-10.8)
[2022-07-09 09:16] LABS: Band 2 % (5-11); Lymphocytes 3 % (21-51); MDiff Complete? YES; Monocytes 6 % (0-10); Neutrophil 89 % (42-75); Platelet Morphology Comment Appears Increased; RBC Morphology Normal
[2022-07-09] MEDS ORDERED: Lorazepam 2 MG/ML VIAL SLOW IVP SCH (10:45)
[2022-07-09] MEDS: FENTANYL 50 MCG/ML 1 ML VIAL SLOW IVP PRN ×3 (11:15→23:20)
[2022-07-09] MEDS ORDERED: Sodium Bicarbonate 2.5 MEQ/5 ML VIAL ONE (11:24)
[2022-07-09] MEDS ORDERED: Midazolam HCl 2 mg/2 ml Vial ONE (11:24)
[2022-07-09] MEDS ORDERED: FENTANYL 50 MCG/ML 1 ML VIAL ONE (11:24)
[2022-07-09] MEDS ORDERED: Lidocaine 2% PF 5 ML VIAL ONE (11:24)
[2022-07-09] MEDS: Dextrose 5% in Water 1,000 ML IV SCH ×2 (13:05→16:13)
[2022-07-09] MEDS: Cefepime 1 GM in Sodium Chloride 0.9% 100 ML IVPB SCH (14:40)
[2022-07-09 14:44] LABS: RBC Count-Automated (BF) 5755 /cu.mm; WBC/Nucleated-Auto (BF) 31299 /cu.mm
[2022-07-09 14:45] LABS: BF Color Yellow; Body Fluid Source Peritoneal Fluid; Clarity Cloudy/Turbid (Clear); Tube # EDTA
[2022-07-09 14:48] LABS: BF Segmented Neutrophils 91 %; Cell Count Non Hematic 9 %
[2022-07-09] MEDS ORDERED: Sodium Bicarbonate 150 MEQ in Dextrose 5% in Water 1,000 ML IV SCH (15:15)
[2022-07-09] MEDS: Simethicone Chewable 80 MG TAB PO PRN (18:25)
[2022-07-09] MEDS: oxyCODONE 5 MG TAB PO PRN (18:59)
[2022-07-09] MEDS: Zolpidem Tartrate 5 MG TAB PO PRN (20:32)
[2022-07-09] MEDS: ALPRAZolam 0.25 MG TAB PO PRN (20:33)
[2022-07-09] MEDS: Escitalopram Oxalate 10 mg Tablet PO SCH (20:33)
[2022-07-10] MEDS: Acetaminophen 325 MG TAB PO PRN ×2 (02:53→16:53)
[2022-07-10] MEDS: Lidocaine 5% Patch TD SCH (06:51)
[2022-07-10] MEDS: oxyCODONE 5 MG TAB PO PRN ×2 (06:56→23:48)
[2022-07-10] MEDS ORDERED: Sodium Bicarbonate 150 MEQ in Dextrose 5% in Water 1,000 ML IV SCH (07:02)
[2022-07-10] MEDS: metroNIDAZOLE 500 MG TAB PO SCH ×3 (08:59→21:55)
[2022-07-10 09:37] LABS: ALT (SGPT) 16 U/L (8-55); AST (SGOT) 22 U/L (5-34); Albumin 3.2 g/dL (3.5-5.0); Alkaline Phosphatase 327 U/L (40-110); Anion Gap 12 mmol/L (10-20); BUN (Urea Nitrogen) 18 mg/dL (7.0-18.7); Bilirubin, Total 0.8 mg/dL (0.2-1.2); Calc. Creatinine Clearance 25 mL/min (70-130); Carbon Dioxide 23 mmol/L (22-29); Chloride 107 mmol/L (98-107); Estimated GFR 17; Globulin 2.5 g/dL (2.4-3.5); Glucose 116 mg/dL (70-105); Potassium 3.6 mmol/L (3.5-5.1); Protein, Total 5.7 g/dL (6.0-8.3); Sodium 138 mmol/L (136-145)
[2022-07-10 10:22] LABS: Hemoglobin 10.2 g/dL (12.0-16.0); Mean Corpuscular HGB CONC 31.5 g/dL (32.0-36.0); Mean Corpuscular Volume 92.3 fl (78.0-98.0); Mean Platelet Volume 7.1 fL (7.4-10.4); Platelet Count 812 10x3/uL (130-400); RBC Distribution Width 12.5 % (11.5-14.5)
[2022-07-10] MEDS ORDERED: Furosemide 40 MG/4 ML VIAL SLOW IVP SCH (11:15)
[2022-07-10] MEDS: Albumin 25% 25 GM/100 ML BOT IVPB SCH ×3 (11:16→22:37)
[2022-07-10 11:43] LABS: Band 1 % (5-11); Eosinophils 1 % (0-10); Lymphocytes 9 % (21-51); MDiff Complete? YES; Monocytes 13 % (0-10); Neutrophil 76 % (42-75); Platelet Morphology Comment Appears Increased; RBC Morphology Normal
[2022-07-10] MEDS: Micafungin 100 MG in Sodium Chloride 0.9% 100 ML IVPB SCH (12:48)
[2022-07-10] MEDS ORDERED: Morphine 4 MG/ML VIAL SLOW IVP PRN (13:10)
[2022-07-10] MEDS: Cefepime 1 GM in Sodium Chloride 0.9% 100 ML IVPB SCH (14:27)
[2022-07-10] MEDS: Benzonatate 100 MG CAP PO PRN ×2 (18:09→22:22)
[2022-07-10] MEDS ORDERED: Heparin 5,000 UNITS/ML VIAL SC SCH (21:00)
[2022-07-10] MEDS: Escitalopram Oxalate 10 mg Tablet PO SCH (21:30)
[2022-07-10] MEDS: Zolpidem Tartrate 5 MG TAB PO PRN (21:30)
[2022-07-10] MEDS: Transdermal Patch Removal TOP SCH (21:31)
[2022-07-10] MEDS: Heparin 5,000 UNITS/ML VIAL SC SCH (21:32)
[2022-07-10] MEDS: Morphine 4 MG/ML VIAL SLOW IVP PRN (21:33)
[2022-07-10] MEDS: Simethicone Chewable 80 MG TAB PO PRN (21:55)
[2022-07-11] MEDS: Albumin 25% 25 GM/100 ML BOT IVPB SCH ×4 (06:22→23:49)
[2022-07-11] MEDS: Benzonatate 100 MG CAP PO PRN ×2 (06:31→13:13)
[2022-07-11 07:34] LABS: Hemoglobin 9.8 g/dL (12.0-16.0); Mean Corpuscular HGB CONC 30.9 g/dL (32.0-36.0); Mean Corpuscular Hemoglobin 28.6 pg (27.0-31.0); Mean Corpuscular Volume 92.6 fl (78.0-98.0); Mean Platelet Volume 7.1 fL (7.4-10.4); Platelet Count 851 10x3/uL (130-400); RBC Distribution Width 12.6 % (11.5-14.5); Red Blood Cell (RBC) Count 3.41 mill/uL (4.20-5.40); White Blood Cell (WBC) Count 28.7 10x3/uL (4.8-10.8)
[2022-07-11 07:51] LABS: Anion Gap 14 mmol/L (10-20); BUN (Urea Nitrogen) 18 mg/dL (7.0-18.7); Calc. Creatinine Clearance 26 mL/min (70-130); Calcium 8.6 mg/dL (7.8-10.44); Carbon Dioxide 25 mmol/L (22-29); Chloride 103 mmol/L (98-107); Estimated GFR 19; Glucose 88 mg/dL (70-105); Potassium 3.4 mmol/L (3.5-5.1); Sodium 139 mmol/L (136-145)
[2022-07-11 08:18] LABS: Band 5 % (5-11); Lymphocytes 8 % (21-51); MDiff Complete? YES; Monocytes 12 % (0-10); Neutrophil 74 % (42-75); Platelet Morphology Comment Appears Increased; Polychromasia SLIGHT = 2-3 cells (100X) (0-2/hpf); Reactive Lymphocytes 1 % (0-10)
[2022-07-11] MEDS ORDERED: Potassium Chloride 20 MEQ TAB PO SCH (08:45)
[2022-07-11] MEDS ORDERED: traMADol HCl 50 MG TAB PO SCH (08:45)
[2022-07-11] MEDS: metroNIDAZOLE 500 MG TAB PO SCH ×3 (08:58→23:46)
[2022-07-11] MEDS: Heparin 5,000 UNITS/ML VIAL SC SCH ×3 (09:00→23:47)
[2022-07-11] MEDS: Lidocaine 5% Patch TD SCH (09:00)
[2022-07-11] MEDS: Micafungin 100 MG in Sodium Chloride 0.9% 100 ML IVPB SCH (11:54)
[2022-07-11] MEDS: Furosemide 40 MG/4 ML VIAL SLOW IVP SCH (13:06)
[2022-07-11] MEDS: ALPRAZolam 0.25 MG TAB PO PRN ×2 (13:43→23:50)
[2022-07-11] MEDS ORDERED: traMADol HCl 50 MG TAB PO PRN (15:30)
[2022-07-11] MEDS ORDERED: Lorazepam 2 MG/ML VIAL SLOW IVP SCH (15:30)
[2022-07-11] MEDS ORDERED: fentaNYL PF 100 MCG/2 ML SYRINGE ONE (16:15)
[2022-07-11] MEDS ORDERED: Midazolam HCl 2 mg/2 ml Vial ONE (16:15)
[2022-07-11] MEDS ORDERED: Lidocaine 1% (PF) 30 ML VIAL ONE (16:17)
[2022-07-11] MEDS: Cefepime 1 GM in Sodium Chloride 0.9% 100 ML IVPB SCH (16:23)
[2022-07-11] MEDS ORDERED: PROPOFOL 200 MG/20 ML VIAL ONE (16:54)
[2022-07-11] MEDS ORDERED: Ondansetron HCl/PF 4 MG/2 ML Vial IVP PRN (17:30)
[2022-07-11] MEDS ORDERED: Promethazine HCl 25 MG/ML VIAL IM PRN (17:30)
[2022-07-11] MEDS ORDERED: HYDROmorphone 2 MG/ML VIAL SLOW IVP PRN (17:30)
[2022-07-11] MEDS ORDERED: Promethazine HCl 25 MG/ML VIAL IVPB PRN (17:30)
[2022-07-11] MEDS ORDERED: FENTANYL 50 MCG/ML 1 ML VIAL ONE ×5 (17:35→18:57)
[2022-07-11] MEDS ORDERED: HYDROmorphone 0.5 MG/0.5 ML SYRINGE ONE ×3 (18:47→22:11)
[2022-07-11 21:34] LABS: Actual Bicarbonate (HCO3a) 26.6 mEq/L (22-28); Base Excess (BEa) 1.4 mEq/L (-2.0 to +3.0); CO2 Tension 44.6 mmHg (35.0-45.0); Carboxyhemoglobin (COHb) 0.3 gm% (0.0-3.0); Hemoglobin (Hb) 11.3 g/dL (12.0-16.0); pH, Arterial 7.39 (7.35-7.45)
[2022-07-11] MEDS: Transdermal Patch Removal TOP SCH (23:13)
[2022-07-11 23:19] LABS: O2 Tension (PaO2), arterial 49.9 mmHg (80.0-100.0); Puncture Site LRA
[2022-07-11] MEDS: Escitalopram Oxalate 10 mg Tablet PO SCH (23:47)
[2022-07-12] MEDS: Morphine 4 MG/ML VIAL SLOW IVP PRN (02:25)
[2022-07-12] MEDS: Furosemide 40 MG/4 ML VIAL SLOW IVP SCH ×2 (02:42→08:41)
[2022-07-12 02:44] LABS: Base Excess (BEa) -6.8 mEq/L (-2.0 to +3.0); Calcium, Ionized (arterial) 1.18 mmol/L (1.12-1.30); Carboxyhemoglobin (COHb) 0.3 gm% (0.0-3.0); Hemoglobin (Hb) 11.7 g/dL (12.0-16.0); Potassium - ABG Lab 4.15 mmol/L (3.70-5.30)
[2022-07-12] MEDS ORDERED: Ventilator Sedation Protocol 1 EACH FS SCH (03:00)
[2022-07-12] MEDS ORDERED: Morphine 4 MG/ML VIAL SLOW IVP PRN (03:15)
[2022-07-12] MEDS ORDERED: Fentanyl BOLUS 250 ML IVPB PRN (03:15)
[2022-07-12] MEDS ORDERED: DISCONTINUE PREVIOUS NARCOTIC PAIN MEDICATIONS AND BENZODIAZEPINES FS SCH (03:15)
[2022-07-12] MEDS ORDERED: Propofol BOLUS 1,000 MG/100 ML VIAL IV PRN (03:15)
[2022-07-12] MEDS ORDERED: Propofol 1,000 MG/100 ML VIAL IV ONE (03:22)
[2022-07-12 03:24] LABS: Puncture Site LRA; pH, Arterial 7.14 (7.35-7.45)
[2022-07-12 03:29] LABS: Actual Bicarbonate (HCO3a) 22.1 mEq/L (22-28); Base Excess (BEa) -4.7 mEq/L (-2.0 to +3.0); CO2 Tension 47.9 mmHg (35.0-45.0); Calcium, Ionized (arterial) 1.11 mmol/L (1.12-1.30); Carboxyhemoglobin (COHb) 0.3 gm% (0.0-3.0); Hemoglobin (Hb) 11.5 g/dL (12.0-16.0); Potassium - ABG Lab 3.32 mmol/L (3.70-5.30); pH, Arterial 7.28 (7.35-7.45)
[2022-07-12] MEDS ORDERED: Furosemide 40 MG/4 ML VIAL ONE (03:38)
[2022-07-12 03:40] LABS: O2 Tension (PaO2), arterial 50.5 mmHg (80.0-100.0)
[2022-07-12 03:41] LABS: Puncture Site LBA
[2022-07-12 03:42] LABS: ALV-art Gradient 602.625 mmHg (0-20)
[2022-07-12] MEDS ORDERED: Furosemide 20 MG/2 ML VIAL SLOW IVP SCH (03:45)
[2022-07-12 03:49] LABS: Band 6 % (5-11); Burr Cells SLIGHT = 2-5 cells (100X) (0-1/hpf); Eosinophils 1 % (0-10); Hypochromia SLIGHT = 6-15 cells (100X) (0-5/hpf); Lymphocytes 16 % (21-51); MDiff Complete? YES; Mean Corpuscular HGB CONC 30.6 g/dL (32.0-36.0); Mean Corpuscular Hemoglobin 28.9 pg (27.0-31.0); Mean Corpuscular Volume 94.6 fl (78.0-98.0); Mean Platelet Volume 7.2 fL (7.4-10.4); Monocytes 10 % (0-10); Myelocyte 1 % (0-0); Neutrophil 66 % (42-75); Platelet Count 996 10x3/uL (130-400); Platelet Morphology Comment Appears Increased; Polychromasia SLIGHT = 2-3 cells (100X) (0-2/hpf); RBC Distribution Width 12.9 % (11.5-14.5); Red Blood Cell (RBC) Count 3.81 mill/uL (4.20-5.40)
[2022-07-12] MEDS: Propofol 1,000 MG/100 ML VIAL IV PRN ×2 (03:51→09:25)
[2022-07-12] MEDS ORDERED: Pharmacy to Dose VANCOMYCIN AND MEROPENEM IVPB PRN (04:14)
[2022-07-12 04:20] LABS: Anion Gap 21 mmol/L (10-20); BUN (Urea Nitrogen) 20 mg/dL (7.0-18.7); Calc. Creatinine Clearance 26 mL/min (70-130); Calcium 8.8 mg/dL (7.8-10.44); Carbon Dioxide 20 mmol/L (22-29); Chloride 104 mmol/L (98-107); Estimated GFR 19; Glucose 145 mg/dL (70-105); Potassium 3.7 mmol/L (3.5-5.1); Sodium 141 mmol/L (136-145)
[2022-07-12] MEDS ORDERED: Vancomycin Dose by Levels Sliding Scale (Wt <71) FS SCH (04:45)
[2022-07-12 04:46] LABS: Magnesium 1.9 mg/dL (1.6-2.6)
[2022-07-12] MEDS ORDERED: Meropenem 1 GM in Sodium Chloride 0.9% 100 ML IVPB SCH (05:00)
[2022-07-12] MEDS: Albumin 25% 25 GM/100 ML BOT IVPB SCH (05:03)
[2022-07-12] MEDS: Fentanyl CADD 100 ML IV SCH (05:41)
[2022-07-12] MEDS ORDERED: Vancomycin 1.5 GRAM/300 ML BAG 1.5 GM in Premix Bag 1 BAG IVPB SCH (06:00)
[2022-07-12 07:34] LABS: Actual Bicarbonate (HCO3a) 24.3 mEq/L (22-28); Calcium, Ionized (arterial) 1.08 mmol/L (1.12-1.30); Carboxyhemoglobin (COHb) 0.3 gm% (0.0-3.0); Hemoglobin (Hb) 10.4 g/dL (12.0-16.0); Potassium - ABG Lab 3.55 mmol/L (3.70-5.30); pH, Arterial 7.42 (7.35-7.45)
[2022-07-12] MEDS ORDERED: Magnesium 5 GM/10 ML Abboject SYRINGE ONE (07:43)
[2022-07-12] MEDS ORDERED: Vecuronium 10 MG VIAL ONE (07:47)
[2022-07-12 07:49] LABS: O2 Tension (PaO2), arterial 41.6 mmHg (80.0-100.0); Puncture Site RRA
[2022-07-12] MEDS: Midazolam HCl 2 mg/2 ml Vial SLOW IVP PRN ×2 (07:57→10:59)
[2022-07-12] MEDS ORDERED: Magnesium 2 GM/50 ML(in water) 2 GM in Premix Bag 1 BAG IVPB SCH (08:30)
[2022-07-12] MEDS: Lactated Ringer's 1,000 ML IV SCH ×2 (08:39→15:04)
[2022-07-12] MEDS: Lidocaine 5% Patch TD SCH (08:42)
[2022-07-12] MEDS: Vecuronium 10 MG VIAL IVP PRN ×4 (08:42→14:23)
[2022-07-12] MEDS: Heparin 5,000 UNITS/ML VIAL SC SCH ×3 (09:11→20:55)
[2022-07-12] MEDS: Meropenem 500 MG in Sodium Chloride 0.9% 100 ML IVPB SCH ×2 (10:43→23:05)
[2022-07-12] MEDS: Micafungin 100 MG in Sodium Chloride 0.9% 100 ML IVPB SCH (10:49)
[2022-07-12 11:06] LABS: SARS-CoV-2 NAA Rapid Test Not Detected (NotDetected)
[2022-07-12] MEDS ORDERED: Lorazepam 2 MG/ML VIAL SLOW IVP SCH (14:45)
[2022-07-12 15:52] LABS: Actual Bicarbonate (HCO3v) 21 mEq/L (22-28); Base Excess -2.6 mEq/L (-2.0 to +3.0); Calcium, Ionized (venous) 1.04 mmol/L (1.16-1.32); Chloride (VBG) 103 mmol/L (98-106); Hemoglobin (Hb) 9.9 g/dL (11.7-15.5); Potassium (VBG) 3.39 mmol/L (3.70-5.30); Sodium 139.5 mmol/L (133-146); pH (venous) 7.42 (7.32-7.43)
[2022-07-12 16:08] LABS: Hemoglobin 9.1 g/dL (12.0-16.0); Mean Corpuscular HGB CONC 31.4 g/dL (32.0-36.0); Mean Corpuscular Hemoglobin 28.7 pg (27.0-31.0); Mean Corpuscular Volume 91.4 fl (78.0-98.0); Platelet Count 760 10x3/uL (130-400); Red Blood Cell (RBC) Count 3.17 mill/uL (4.20-5.40); White Blood Cell (WBC) Count 43.3 10x3/uL (4.8-10.8)
[2022-07-12 16:16] LABS: Lactic Acid 1.2 mmol/L (0.5-2.2)
[2022-07-12 16:22] LABS: Band 9 % (5-11); Eosinophils 1 % (0-10); Lymphocytes 3 % (21-51); MDiff Complete? YES; Monocytes 4 % (0-10); Neutrophil 82 % (42-75); Platelet Morphology Comment Appears Increased; Polychromasia SLIGHT = 2-3 cells (100X) (0-2/hpf); Reactive Lymphocytes 1 % (0-10); Vacuoles SLIGHT
[2022-07-12 16:30] LABS: ALT (SGPT) 9 U/L (8-55); AST (SGOT) 27 U/L (5-34); Albumin 3.7 g/dL (3.5-5.0); Alkaline Phosphatase 265 U/L (40-110); Anion Gap 16 mmol/L (10-20); BUN (Urea Nitrogen) 20 mg/dL (7.0-18.7); Bilirubin, Total 0.7 mg/dL (0.2-1.2); Calc. Creatinine Clearance 30 mL/min (70-130); Calcium 8.1 mg/dL (7.8-10.44); Carbon Dioxide 25 mmol/L (22-29); Chloride 105 mmol/L (98-107); Estimated GFR 19; Globulin 2.3 g/dL (2.4-3.5); Glucose 125 mg/dL (70-105); Potassium 3.7 mmol/L (3.5-5.1); Sodium 142 mmol/L (136-145)
[2022-07-12 19:33] LABS: Fluid, Protein 3.9 g/dL (Not Available)
[2022-07-12] MEDS: Escitalopram Oxalate 10 mg Tablet PO SCH (20:54)
[2022-07-12] MEDS: Pantoprazole 40 MG VIAL IVP SCH (20:55)
[2022-07-12] MEDS: Transdermal Patch Removal TOP SCH (20:55)
[2022-07-13] MEDS: Vecuronium 10 MG VIAL IVP PRN ×4 (00:06→10:43)
[2022-07-13] MEDS: Fentanyl CADD 100 ML IV SCH (06:09)
[2022-07-13 06:25] LABS: Anion Gap 16 mmol/L (10-20); BUN (Urea Nitrogen) 21 mg/dL (7.0-18.7); Calc. Creatinine Clearance 33 mL/min (70-130); Calcium 8.4 mg/dL (7.8-10.44); Carbon Dioxide 26 mmol/L (22-29); Chloride 106 mmol/L (98-107); Estimated GFR 21; Glucose 90 mg/dL (70-105); Magnesium 1.9 mg/dL (1.6-2.6); Potassium 3.8 mmol/L (3.5-5.1); Sodium 144 mmol/L (136-145)
[2022-07-13 06:27] LABS: Vancomycin, Random 16.7 ug/mL (See Comment)
[2022-07-13 06:56] LABS: Mean Corpuscular Hemoglobin 28.8 pg (27.0-31.0); Mean Corpuscular Volume 92.8 fl (78.0-98.0); Mean Platelet Volume 7.8 fL (7.4-10.4); Platelet Count 774 10x3/uL (130-400); RBC Distribution Width 13.1 % (11.5-14.5); Red Blood Cell (RBC) Count 3.12 mill/uL (4.20-5.40); White Blood Cell (WBC) Count 39.5 10x3/uL (4.8-10.8)
[2022-07-13] MEDS: Midazolam HCl 2 mg/2 ml Vial SLOW IVP PRN ×2 (07:24→10:43)
[2022-07-13] MEDS: Heparin 5,000 UNITS/ML VIAL SC SCH ×3 (07:51→20:02)
[2022-07-13] MEDS: Furosemide 40 MG/4 ML VIAL SLOW IVP SCH (07:51)
[2022-07-13] MEDS: Propofol 1,000 MG/100 ML VIAL IV PRN (07:51)
[2022-07-13] MEDS: Lidocaine 5% Patch TD SCH (07:52)
[2022-07-13] MEDS ORDERED: Vancomycin HCl 500 MG in Sodium Chloride 0.9% 100 ML IV SCH (08:00)
[2022-07-13 08:30] LABS: Band 11 % (5-11); Eosinophils 1 % (0-10); Hypersemented Neutrophil SLIGHT; Lymphocytes 12 % (21-51); MDiff Complete? YES; Monocytes 6 % (0-10); Neutrophil 69 % (42-75); Platelet Morphology Comment Appears Increased; Polychromasia SLIGHT = 2-3 cells (100X) (0-2/hpf); Reactive Lymphocytes 1 % (0-10); Vacuoles SLIGHT
[2022-07-13] MEDS: Albumin 25% 25 GM/100 ML BOT IVPB SCH ×3 (09:39→21:01)
[2022-07-13] MEDS ORDERED: Lidocaine 2% PF 100 mg/5 ml Syringe ONE (10:16)
[2022-07-13] MEDS ORDERED: Lidocaine 2% PF 100 mg/5 ml Syringe IVP SCH (10:45)
[2022-07-13] MEDS: Meropenem 500 MG in Sodium Chloride 0.9% 100 ML IVPB SCH ×2 (10:52→22:02)
[2022-07-13 11:04] LABS: RBC Count-Automated (BF) 281 /cu.mm; WBC/Nucleated-Auto (BF) 11 /cu.mm
[2022-07-13 11:32] LABS: Body Fluid Source Pleural Fluid; Tube # EDTA
[2022-07-13 11:33] LABS: BF Color Yellow; Clarity Hazy (Clear)
[2022-07-13] MEDS: Micafungin 100 MG in Sodium Chloride 0.9% 100 ML IVPB SCH (11:59)
[2022-07-13 12:07] LABS: BF Segmented Neutrophils 89 %; Cell Count Non Hematic 6 %; Lymphocytes 6 %
[2022-07-13] MEDS: Escitalopram Oxalate 10 mg Tablet PO SCH (20:02)
[2022-07-13] MEDS: Transdermal Patch Removal TOP SCH (20:03)
[2022-07-13] MEDS: Pantoprazole 40 MG VIAL IVP SCH (20:03)
[2022-07-13] MEDS: Acetaminophen 325 MG TAB PO PRN (22:07)
[2022-07-14] MEDS: Propofol 1,000 MG/100 ML VIAL IV PRN ×3 (00:26→19:55)
[2022-07-14] MEDS: Fentanyl CADD 100 ML IV SCH ×2 (00:26→16:52)
[2022-07-14] MEDS: Albumin 25% 25 GM/100 ML BOT IVPB SCH (03:02)
[2022-07-14 04:10] LABS: Anion Gap 15 mmol/L (10-20); BUN (Urea Nitrogen) 33 mg/dL (7.0-18.7); Calc. Creatinine Clearance 34 mL/min (70-130); Calcium 8.8 mg/dL (7.8-10.44); Carbon Dioxide 26 mmol/L (22-29); Chloride 104 mmol/L (98-107); Estimated GFR 21; Glucose 126 mg/dL (70-105); Magnesium 1.9 mg/dL (1.6-2.6); Potassium 3.4 mmol/L (3.5-5.1); Sodium 142 mmol/L (136-145)
[2022-07-14 04:46] LABS: Anisocytosis SLIGHT = 6-15 cells (100X) (0-5/hpf); Band 10 % (5-11); Hemoglobin 8.2 g/dL (12.0-16.0); Hypochromia SLIGHT = 6-15 cells (100X) (0-5/hpf); Lymphocytes 11 % (21-51); MDiff Complete? YES; Mean Corpuscular HGB CONC 31.3 g/dL (32.0-36.0); Mean Corpuscular Hemoglobin 28.4 pg (27.0-31.0); Mean Corpuscular Volume 90.5 fl (78.0-98.0); Mean Platelet Volume 7.5 fL (7.4-10.4); Monocytes 10 % (0-10); Neutrophil 69 % (42-75); Platelet Count 708 10x3/uL (130-400); Platelet Morphology Comment Appears Increased; Polychromasia SLIGHT = 2-3 cells (100X) (0-2/hpf); Red Blood Cell (RBC) Count 2.88 mill/uL (4.20-5.40); White Blood Cell (WBC) Count 29.3 10x3/uL (4.8-10.8)
[2022-07-14 07:24] LABS: Vancomycin, Random 18.3 ug/mL (See Comment)
[2022-07-14] MEDS ORDERED: Vancomycin HCl 500 MG in Sodium Chloride 0.9% 100 ML IV SCH (07:45)
[2022-07-14] MEDS: Midazolam HCl 2 mg/2 ml Vial SLOW IVP PRN ×4 (09:45→21:04)
[2022-07-14] MEDS: Furosemide 40 MG/4 ML VIAL SLOW IVP SCH (09:47)
[2022-07-14] MEDS: Heparin 5,000 UNITS/ML VIAL SC SCH ×3 (09:47→19:59)
[2022-07-14] MEDS: Lidocaine 5% Patch TD SCH (09:55)
[2022-07-14] MEDS: Vecuronium 10 MG VIAL IVP PRN ×2 (10:22→12:52)
[2022-07-14] MEDS ORDERED: NOREPINEPHRINE 8 MG/250 ML-D5W 250 ML ONE (10:22)
[2022-07-14] MEDS ORDERED: NOREPINEPHRINE 8 MG/250 ML-D5W 250 ML IVPB SCH (10:30)
[2022-07-14] MEDS: Meropenem 500 MG in Sodium Chloride 0.9% 100 ML IVPB SCH ×2 (11:33→22:22)
[2022-07-14] MEDS: Acetaminophen 325 MG TAB PO PRN (11:33)
[2022-07-14] MEDS: Micafungin 100 MG in Sodium Chloride 0.9% 100 ML IVPB SCH (11:34)
[2022-07-14 12:10] LABS: Bilirubin Negative (Negative); Blood, Urine Trace (Negative); Clarity Clear (Clear); Glucose, Urine (Dipstick) Normal (Negative); Ketone, Urine Negative (Negative); Leukocyte Negative Leu/uL (Negative); Nitrite Negative (Negative); Protein, Urine (Dipstick) Negative (Neg-Trace); RBC/HPF 0-3 HPF (0-3); Specific Gravity, Urine 1.008 (1.002-1.036); Squamous Epithelial 0-3 HPF (0-3); Urobilinogen Normal mg/dL (Less than 2); WBC/HPF 0-3 HPF (0-3)
[2022-07-14 12:13] LABS: Bacteria/HPF 1+ HPF (None Seen)
[2022-07-14 13:04] LABS: BF Color Yellow; Body Fluid Source Bronchioalveol Lavag; Clarity Cloudy/Turbid (Clear); Tube # EDTA
[2022-07-14 13:08] LABS: BF WBC/Nonhematics Ct.-Manual 680 /cu.mm
[2022-07-14 13:09] LABS: BF RBC Count - Manual 68 /cu.mm
[2022-07-14 13:40] LABS: BF Segmented Neutrophils 63 %; Cell Count Non Hematic 27 %; Lymphocytes 10 %
[2022-07-14] MEDS ORDERED: Acetaminophen 650 MG/20.3 ML UDCUP PER TUBE SCH (15:45)
[2022-07-14] MEDS ORDERED: Fentanyl CADD 100 ML ONE (16:32)
[2022-07-14] MEDS: Escitalopram Oxalate 10 mg Tablet PO SCH (20:00)
[2022-07-14] MEDS: Pantoprazole 40 MG VIAL IVP SCH (20:00)
[2022-07-14] MEDS: Transdermal Patch Removal TOP SCH (20:13)
[2022-07-15] MEDS: Acetaminophen 650 MG/20.3 ML UDCUP PER TUBE PRN ×2 (00:51→07:58)
[2022-07-15 04:30] LABS: Anion Gap 11 mmol/L (10-20); BUN (Urea Nitrogen) 41 mg/dL (7.0-18.7); Calc. Creatinine Clearance 37 mL/min (70-130); Calcium 8.7 mg/dL (7.8-10.44); Carbon Dioxide 28 mmol/L (22-29); Chloride 106 mmol/L (98-107); Estimated GFR 23; Glucose 111 mg/dL (70-105); Potassium 3.2 mmol/L (3.5-5.1); Sodium 142 mmol/L (136-145)
[2022-07-15 04:54] LABS: Band 4 % (5-11); Eosinophils 1 % (0-10); Hypochromia SLIGHT = 6-15 cells (100X) (0-5/hpf); Lymphocytes 8 % (21-51); MDiff Complete? YES; Mean Corpuscular HGB CONC 31.5 g/dL (32.0-36.0); Mean Corpuscular Volume 88.9 fl (78.0-98.0); Mean Platelet Volume 7.7 fL (7.4-10.4); Metamyelocyte 1 % (0-0); Monocytes 11 % (0-10); Neutrophil 75 % (42-75); Platelet Count 555 10x3/uL (130-400); Platelet Morphology Comment Appears Increased; Polychromasia SLIGHT = 2-3 cells (100X) (0-2/hpf); RBC Distribution Width 13.2 % (11.5-14.5); Red Blood Cell (RBC) Count 3.22 mill/uL (4.20-5.40); Target Cells SLIGHT = 2-5 cells (100X) (0-1/hpf); White Blood Cell (WBC) Count 35.6 10x3/uL (4.8-10.8)
[2022-07-15] MEDS: Propofol 1,000 MG/100 ML VIAL IV PRN ×3 (05:02→22:49)
[2022-07-15] MEDS: Vecuronium 10 MG VIAL IVP PRN ×3 (07:51→15:30)
[2022-07-15] MEDS: Midazolam HCl 2 mg/2 ml Vial SLOW IVP PRN ×2 (07:51→15:30)
[2022-07-15 07:56] LABS: Vancomycin, Random 20.7 ug/mL (See Comment)
[2022-07-15] MEDS: Heparin 5,000 UNITS/ML VIAL SC SCH ×3 (08:01→20:24)
[2022-07-15] MEDS: Lidocaine 5% Patch TD SCH (08:01)
[2022-07-15] MEDS: Furosemide 40 MG/4 ML VIAL SLOW IVP SCH (08:01)
[2022-07-15 09:14] LABS: Phosphorus 2.4 mg/dL (2.3-4.7)
[2022-07-15] MEDS ORDERED: Electrolyte Replacement Protocol 1 EACH FS SCH (10:00)
[2022-07-15] MEDS ORDERED: Vancomycin HCl 500 MG in Sodium Chloride 0.9% 100 ML IV SCH (10:00)
[2022-07-15] MEDS: Fentanyl CADD 100 ML IV SCH (10:24)
[2022-07-15] MEDS: Potassium Chloride 20 MEQ in Premix Bag 1 BAG IVPB SCH ×2 (10:48→13:14)
[2022-07-15] MEDS: Sodium Chloride 0.9% 1,000 ML IV SCH (11:22)
[2022-07-15] MEDS: Meropenem 500 MG in Sodium Chloride 0.9% 100 ML IVPB SCH ×2 (11:35→22:46)
[2022-07-15] MEDS ORDERED: ALPRAZolam 0.5 MG TAB PO PRN (11:49)
[2022-07-15] MEDS ORDERED: Midazolam HCl 2 mg/2 ml Vial SLOW IVP SCH (12:00)
[2022-07-15] MEDS: Micafungin 100 MG in Sodium Chloride 0.9% 100 ML IVPB SCH (13:14)
[2022-07-15] MEDS ORDERED: Sodium Bicarbonate 2.5 MEQ/5 ML VIAL ONE (15:05)
[2022-07-15 15:26] LABS: INR-International Normal Ratio 1.3; Prothrombin Time 16.4 sec (12.0-14.7)
[2022-07-15 15:27] LABS: PTT 38.6 sec (22.9-36.1)
[2022-07-15 18:52] LABS: Body Fluid Source Abscess Fluid; Tube # EDTA
[2022-07-15 18:53] LABS: BF Color Brown; Clarity Cloudy/Turbid (Clear)
[2022-07-15] MEDS: Escitalopram Oxalate 10 mg Tablet PO SCH ×2 (20:24→20:25)
[2022-07-15] MEDS: Pantoprazole 40 MG VIAL IVP SCH (20:25)
[2022-07-15] MEDS: Transdermal Patch Removal TOP SCH (20:25)
[2022-07-16] MEDS: Midazolam HCl 2 mg/2 ml Vial SLOW IVP PRN (02:05)
[2022-07-16] MEDS ORDERED: Fentanyl CADD 100 ML ONE ×2 (02:56→19:04)
[2022-07-16] MEDS: Fentanyl CADD 100 ML IV SCH ×2 (03:01→19:11)
[2022-07-16] MEDS: Sodium Chloride 0.9% 1,000 ML IV SCH ×2 (03:56→16:08)
[2022-07-16 04:47] LABS: ALT (SGPT) 9 U/L (8-55); AST (SGOT) 35 U/L (5-34); Albumin 3.4 g/dL (3.5-5.0); Alkaline Phosphatase 291 U/L (40-110); Anion Gap 16 mmol/L (10-20); BUN (Urea Nitrogen) 45 mg/dL (7.0-18.7); Bilirubin, Total 0.9 mg/dL (0.2-1.2); Calc. Creatinine Clearance 44 mL/min (70-130); Calcium 8.5 mg/dL (7.8-10.44); Carbon Dioxide 26 mmol/L (22-29); Chloride 107 mmol/L (98-107); Estimated GFR 28; Globulin 2.8 g/dL (2.4-3.5); Glucose 128 mg/dL (70-105); Phosphorus 3.2 mg/dL (2.3-4.7); Potassium 3.6 mmol/L (3.5-5.1); Protein, Total 6.2 g/dL (6.0-8.3); Sodium 145 mmol/L (136-145)
[2022-07-16] MEDS: Vecuronium 10 MG VIAL IVP PRN ×2 (04:51→22:26)
[2022-07-16] MEDS: Furosemide 40 MG/4 ML VIAL SLOW IVP SCH (08:40)
[2022-07-16] MEDS: Acetaminophen 650 MG/20.3 ML UDCUP PER TUBE PRN ×2 (08:40→18:02)
[2022-07-16] MEDS: Heparin 5,000 UNITS/ML VIAL SC SCH ×3 (08:40→21:16)
[2022-07-16] MEDS: Lidocaine 5% Patch TD SCH (08:41)
[2022-07-16 09:26] LABS: Vancomycin, Random 16.9 ug/mL (See Comment)
[2022-07-16] MEDS: Meropenem 500 MG in Sodium Chloride 0.9% 100 ML IVPB SCH ×2 (10:46→22:26)
[2022-07-16 10:55] LABS: SARS-CoV-2 NAA Rapid Test Not Detected (NotDetected)
[2022-07-16] MEDS ORDERED: Vancomycin HCl 500 MG in Sodium Chloride 0.9% 100 ML IVPB SCH (11:15)
[2022-07-16 11:27] LABS: Band 13 % (5-11); Eosinophils 1 % (0-10); Hemoglobin 8.8 g/dL (12.0-16.0); Hypochromia SLIGHT = 6-15 cells (100X) (0-5/hpf); Lymphocytes 5 % (21-51); MDiff Complete? YES; Mean Corpuscular Hemoglobin 27.9 pg (27.0-31.0); Mean Corpuscular Volume 90.1 fl (78.0-98.0); Mean Platelet Volume 8.2 fL (7.4-10.4); Monocytes 4 % (0-10); Neutrophil 77 % (42-75); Platelet Count 379 10x3/uL (130-400); Platelet Morphology Comment Appears Adequate; RBC Distribution Width 13.3 % (11.5-14.5); Red Blood Cell (RBC) Count 3.16 mill/uL (4.20-5.40); Target Cells SLIGHT = 2-5 cells (100X) (0-1/hpf)
[2022-07-16] MEDS: Micafungin 100 MG in Sodium Chloride 0.9% 100 ML IVPB SCH (12:22)
[2022-07-16] MEDS: Propofol 1,000 MG/100 ML VIAL IV PRN (18:03)
[2022-07-16] MEDS: Pantoprazole 40 MG VIAL IVP SCH (21:16)
[2022-07-16] MEDS: Transdermal Patch Removal TOP SCH (21:18)
[2022-07-17] MEDS: Vecuronium 10 MG VIAL IVP PRN (04:46)
[2022-07-17 04:53] LABS: Anion Gap 13 mmol/L (10-20); BUN (Urea Nitrogen) 49 mg/dL (7.0-18.7); Calc. Creatinine Clearance 53 mL/min (70-130); Calcium 8.4 mg/dL (7.8-10.44); Carbon Dioxide 28 mmol/L (22-29); Chloride 109 mmol/L (98-107); Estimated GFR 35; Glucose 117 mg/dL (70-105); Potassium 3.6 mmol/L (3.5-5.1); Sodium 146 mmol/L (136-145)
[2022-07-17 05:02] LABS: Band 7 % (5-11); Eosinophils 1 % (0-10); Hemoglobin 9.2 g/dL (12.0-16.0); Lymphocytes 5 % (21-51); MDiff Complete? YES; Mean Corpuscular HGB CONC 31.9 g/dL (32.0-36.0); Mean Corpuscular Hemoglobin 28.4 pg (27.0-31.0); Mean Corpuscular Volume 89.1 fl (78.0-98.0); Mean Platelet Volume 8.6 fL (7.4-10.4); Monocytes 3 % (0-10); Myelocyte 2 % (0-0); Neutrophil 82 % (42-75); Platelet Count 362 10x3/uL (130-400); RBC Distribution Width 13.5 % (11.5-14.5); Red Blood Cell (RBC) Count 3.25 mill/uL (4.20-5.40); White Blood Cell (WBC) Count 39.3 10x3/uL (4.8-10.8)
[2022-07-17 05:17] VITALS: BMI 34.2
[2022-07-17] MEDS: Acetaminophen 650 MG/20.3 ML UDCUP PER TUBE PRN ×3 (07:48→23:27)
[2022-07-17] MEDS: Sodium Chloride 0.9% 1,000 ML IV SCH (07:49)
[2022-07-17] MEDS: Furosemide 40 MG/4 ML VIAL SLOW IVP SCH (08:09)
[2022-07-17] MEDS: Heparin 5,000 UNITS/ML VIAL SC SCH ×3 (08:09→20:25)
[2022-07-17] MEDS: Lidocaine 5% Patch TD SCH (08:09)
[2022-07-17] MEDS ORDERED: Sodium Chloride 0.9% 1,000 ML IV SCH (08:20)
[2022-07-17] MEDS ORDERED: Albumin 25% 25 GM/100 ML BOT IVPB SCH (08:45)
[2022-07-17] MEDS: Meropenem 500 MG in Sodium Chloride 0.9% 100 ML IVPB SCH ×2 (10:06→23:04)
[2022-07-17] MEDS ORDERED: Vancomycin HCl 500 MG in Sodium Chloride 0.9% 100 ML IVPB SCH (11:00)
[2022-07-17] MEDS: Propofol 1,000 MG/100 ML VIAL IV PRN ×2 (11:47→19:01)
[2022-07-17] MEDS: Fentanyl CADD 100 ML IV SCH (11:58)
[2022-07-17] MEDS: Micafungin 100 MG in Sodium Chloride 0.9% 100 ML IVPB SCH (11:58)
[2022-07-17] MEDS: Albumin 25% 25 GM/100 ML BOT IVPB SCH ×2 (14:24→20:25)
[2022-07-17] MEDS: Midazolam HCl 2 mg/2 ml Vial SLOW IVP PRN ×2 (16:44→19:01)
[2022-07-17] MEDS ORDERED: Lidocaine 2% PF 5 ML VIAL FS PRN (17:07)
[2022-07-17] MEDS ORDERED: Lidocaine 2% PF 5 ML VIAL FS SCH (17:15)
[2022-07-17] MEDS: Transdermal Patch Removal TOP SCH (20:23)
[2022-07-17] MEDS: Escitalopram Oxalate 10 mg Tablet PO SCH (20:25)
[2022-07-17] MEDS: Pantoprazole 40 MG VIAL IVP SCH (20:25)
[2022-07-18 01:29] VITALS: BP 131/86
[2022-07-18] MEDS: Midazolam HCl 2 mg/2 ml Vial SLOW IVP PRN (01:46)
[2022-07-18] MEDS: Vecuronium 10 MG VIAL IVP PRN (01:46)
[2022-07-18 02:41] VITALS: TEMP 101.3
[2022-07-18 22:36] LABS: Lipase-Fluid 8 U/L (.)
== END 2022-07-18 02:09 | disposition short-term general hospital (02) | DRG 393 ==
LOC: 2NO 18:10 → T4-A 07-05 16:22 → PACU-TCU 07-11 22:50 → IMCU/EMU 07-12 02:19 → CCU 07-12 03:04
PROVIDERS: ADMIT Internal Medicine; ATTEND Internal Medicine
PROC: 3E03329 Introduction of Other Anti-infective into Peripheral Vein, Percutaneous Approach (ICD-10-PCS; 2022-07-03)
PROC: 0FL Hepatobiliary System and Pancreas, Occlusion (ICD-10-PCS; principal; 2022-07-05)
PROC: BF101ZZ Fluoroscopy of Bile Ducts using Low Osmolar Contrast (ICD-10-PCS; 2022-07-05)
PROC: 0W9G3ZX Drainage of Peritoneal Cavity, Percutaneous Approach, Diagnostic (ICD-10-PCS; 2022-07-06)
PROC: 0W9930Z Drainage of Right Pleural Cavity with Drainage Device, Percutaneous Approach (ICD-10-PCS; 2022-07-11)
PROC: 5A09357 Assistance with Respiratory Ventilation, Less than 24 Consecutive Hours, Continuous Positive Airway Pressure (ICD-10-PCS; 2022-07-11)
PROC: 5A1955Z Respiratory Ventilation, Greater than 96 Consecutive Hours (ICD-10-PCS; 2022-07-12)
PROC: 0BH17EZ Insertion of Endotracheal Airway into Trachea, Via Natural or Artificial Opening (ICD-10-PCS; 2022-07-12)
PROC: 0BCB8ZZ Extirpation of Matter from Left Lower Lobe Bronchus, Via Natural or Artificial Opening Endoscopic (ICD-10-PCS; 2022-07-13)
PROC: 0BC68ZZ Extirpation of Matter from Right Lower Lobe Bronchus, Via Natural or Artificial Opening Endoscopic (ICD-10-PCS; 2022-07-13)
PROC: 0W9G30Z Drainage of Peritoneal Cavity with Drainage Device, Percutaneous Approach (ICD-10-PCS; 2022-07-14)
PROC: 0W9G30Z Drainage of Peritoneal Cavity with Drainage Device, Percutaneous Approach (ICD-10-PCS; 2022-07-15)
PROC: 0W9G30Z Drainage of Peritoneal Cavity with Drainage Device, Percutaneous Approach (ICD-10-PCS; 2022-07-18)
DX: K91.89 Other postprocedural complications and disorders of digestive system (principal); K65.9 Peritonitis, unspecified; B37.7 Candidal sepsis; K83.1 Obstruction of bile duct; K65.1 Peritoneal abscess; Z20.822 Contact with and (suspected) exposure to COVID-19; I50.21 Acute systolic (congestive) heart failure; J96.01 Acute respiratory failure with hypoxia; J96.02 Acute respiratory failure with hypercapnia; G93.41 Metabolic encephalopathy; J18.9 Pneumonia, unspecified organism; R65.21 Severe sepsis with septic shock; N17.9 Acute kidney failure, unspecified; E87.20 Acidosis, unspecified; J91.8 Pleural effusion in other conditions classified elsewhere; D68.4 Acquired coagulation factor deficiency; I42.9 Cardiomyopathy, unspecified; T81.43XA Infection following a procedure, organ and space surgical site, initial encounter; T81.44XA Sepsis following a procedure, initial encounter; Z99.11 Dependence on respirator [ventilator] status; M06.9 Rheumatoid arthritis, unspecified; G47.33 Obstructive sleep apnea (adult) (pediatric); F41.9 Anxiety disorder, unspecified; Y84.8 Other medical procedures as the cause of abnormal reaction of the patient, or of later complication, without mention of misadventure at the time of the procedure; I11.0 Hypertensive heart disease with heart failure; E66.9 Obesity, unspecified; K83.8 Other specified diseases of biliary tract; Z79.899 Other long term (current) drug therapy; Z98.84 Bariatric surgery status; Z78.1 Physical restraint status; Z68.34 Body mass index [BMI] 34.0-34.9, adult
CPT/HCPCS: 36415; 36600; 49020; 71045; 74176; 74330; 76700; 77002; 80048; 80053; 80076; 80202; 81001; 82150; 82239; 82247; 82570; 82805; 83605; 83615; 83690; 83735; 83880; 84100; 84145; 84157; 84300; 84478; 85025; 85060; 85610; 85730; 86140; 87040; 87070; 87086; 87102; 87205; 89051; 93005; 93010; 93306; 94002; 94003; 94660; C1729; C9113; J0692; J0696; J1100; J1170; J1644; J1940; J2001; J2060; J2185; J2248; J2250; J2270; J2405; J2543; J2704; J3010; J3370; J3475; J3480; J3490; J7050; J7070; J7120; P9047; Q9967; U0002

== ENCOUNTER 2023-06-20 07:54 | Outpatient (CLI) | payer BC | END 2023-06-20 07:55 | disposition home or self-care (01) | LOC: BICMAMMO 07:54 | PROVIDERS: ATTEND Family Medicine | DX: Z12.31 Encounter for screening mammogram for malignant neoplasm of breast (principal); Z80.3 Family history of malignant neoplasm of breast | CPT/HCPCS: 77063; 77067 ==